=== PATIENT | male | born 1955 | race Two or more races ===

== ENCOUNTER 2017-02-14 21:31 | Emergency (ER) | payer SELFPAY | END 2017-02-14 23:41 | disposition home or self-care (01) | LOC: ED 21:31 | DX: S80.922D Unspecified superficial injury of left lower leg, subsequent encounter (principal); E11.9 Type 2 diabetes mellitus without complications; E66.9 Obesity, unspecified; I10 Essential (primary) hypertension; Z79.84 Long term (current) use of oral hypoglycemic drugs; X58.XXXD Exposure to other specified factors, subsequent encounter ==